=== PATIENT | male | born 1980 | race Caucasian/White ===

== ENCOUNTER 2018-12-28 13:59 | Emergency (ER) | payer SELFPAY ==
[~2018-12-28] VITALS: Ht 203.2 cm; Wt 86.6 kg
[2018-12-28 14:25] VITALS: Ht 203.2 cm; Wt 86.6 kg
[2018-12-28 19:20] VITALS: BP 137/87
== END 2018-12-28 19:20 | disposition home or self-care (01) ==
LOC: ED 13:59
DX: L02.212 Cutaneous abscess of back [any part, except buttock and flank] (principal); Z90.49 Acquired absence of other specified parts of digestive tract
CPT/HCPCS: J2001

== ENCOUNTER 2019-01-20 13:25 | Emergency (ER) | payer OTHER ==
[~2019-01-20] VITALS: Ht 172.7 cm; Wt 86.2 kg
[2019-01-20 13:38] VITALS: Ht 172.7 cm; Wt 86.2 kg
[2019-01-20 15:58] VITALS: BP 138/96
== END 2019-01-20 15:58 | disposition home or self-care (01) ==
LOC: ED 13:25
DX: S61.214A Laceration without foreign body of right ring finger without damage to nail, initial encounter (principal); S61.216A Laceration without foreign body of right little finger without damage to nail, initial encounter; Z90.49 Acquired absence of other specified parts of digestive tract; W26.0XXA Contact with knife, initial encounter; Y93.89 Activity, other specified; Y92.89 Other specified places as the place of occurrence of the external cause; Y99.0 Civilian activity done for income or pay
CPT/HCPCS: 90715; J2001

== ENCOUNTER 2019-01-22 08:03 | Emergency (ER) | payer OTHER ==
[~2019-01-22] VITALS: Ht 172.7 cm; Wt 85.7 kg
[2019-01-22 08:06] VITALS: BP 131/89; Ht 172.7 cm; Wt 85.7 kg
== END 2019-01-22 08:44 | disposition home or self-care (01) ==
LOC: ED 08:03
DX: S61.411D Laceration without foreign body of right hand, subsequent encounter (principal); Z90.49 Acquired absence of other specified parts of digestive tract; X58.XXXD Exposure to other specified factors, subsequent encounter

== ENCOUNTER 2019-01-27 06:22 | Emergency (ER) | payer OTHER ==
[~2019-01-27] VITALS: Ht 172.7 cm; Wt 67.1 kg
[2019-01-27 06:24] VITALS: BP 140/88; Ht 172.7 cm; Wt 67.1 kg
== END 2019-01-27 08:51 | disposition home or self-care (01) ==
LOC: ED 06:22
DX: S61.214D Laceration without foreign body of right ring finger without damage to nail, subsequent encounter (principal); Z90.49 Acquired absence of other specified parts of digestive tract; X58.XXXD Exposure to other specified factors, subsequent encounter